=== PATIENT | female | born 1985 | race Caucasian/White ===

== ENCOUNTER 2017-06-12 09:40 | Emergency (ER) | payer OTHER ==
[~2017-06-12 09:40] MED LIST: PREN29TA PO; SERT-129 PO
--- NOTE | 2017-06-12 10:20 | PD ---
HPI Chief Complaint loss of fluids Date Seen: Jun 12, 2017 Time Seen: 10:20 Travel History International Travel<30 Days: No Contact w/Intl Traveler<30Days: No History of Present Illness HPI Mrs. Rodriguez is a 32-year-old at 35/3 weeks who presents for loss of fluids. Patient states she was walking along and here undergarments became soaked. States she had recently used the bathroom, but unsure if she completely emptied. Denies any vaginal bleeding, contractions. Endorses movement. She sees Dr. Zarate for care. No dysuria. No complications during this . She had been on sertraline during this but stopped taking it 2.5 weeks ago. Did have urinary incontinence during her last and went to due to bladder obstruction per pt. Weeks Gestation: 35 Para: 1 : 2 History Past Medical History Narrative Medical Anxiety Obstetric History Obstetric History at 39 weeks Past Surgical History Narrative Surgical Tympanostomy Family History Family History: Negative Social History Alcohol Use: No Tobacco Use: No Substance Abuse: No Allergies-Medications (Allergen,Severity, Reaction): Coded Allergies: No Known Allergies (Unverified , 11/13/16) Home Meds Reported Medications Vit-Iron Carbonyl ( Plus Iron 29-1 mg) 1 Tab Tab, 1 TAB PO DAILY for Nutritional Supplement, #30 TAB 0 Refills 11/13/16 Sertraline (Sertraline) 100 Mg Tab, 100 MG PO DAILY, #30 TAB 0 Refills 11/13/16 Review of Systems General / Constitutional: No: Fever, Weight Gain, Chills, Other Eyes: No: Diploplia, Blurred Vision, Visual changes, Pain, Photophobia HENT: No: Headaches, Vertigo, Lightheadedness Cardiovascular: No: Irregular Rhythm, Chest Pain or Discomfort, Palpitations, Tachycardia, Syncope, Varicosities, Edema, Cyanosis Respiratory: No: Cough, Short of Breath, Other Gastrointestinal: No: Nausea, Vomiting, Diarrhea Genitourinary: No: Decreased Urinary Output, Oliguria Musculoskeletal: No: Limited ROM, Weakness, Cramping, Edema, Pain Skin: No Rash, No Itching, No Dryness, No Lumps, No Change in Pigmentation, No Change in Nails, No Alopecia, No Lesions Neurologic: No: Weakness, Dizziness, Syncope, Focal Abnormalities, Coordination Problem, Headache, Slurred Speech, Seizures Psychiatric: No: Depression, Suicidal Ideations, Homicidal Ideation Endocrine: No: Heat Intolerance, Cold Intolerance, Polydipsia, Polyuria, Other Physical Exam Narrative GENERAL: Well-nourished, well-developed patient. SKIN: Warm and dry. HEAD: Normocephalic and atraumatic. EYES: No scleral icterus. No injection or drainage. ENT: No nasal drainage noted. Mucous membranes pink. Airway patent. NECK: Supple, trachea midline. No JVD. CARDIOVASCULAR: Regular rate and rhythm without murmurs, gallops, or rubs. RESPIRATORY: Breath sounds equal bilaterally. No accessory muscle use. ABDOMEN/GI: Abdomen soft, non-tender, bowel sounds present, no rebound, no guarding Gravid to 36 weeks size GENITOURINARY: Uterine Contractions: none FHT's: Category: 1 Baseline: 140 Reactive: yes Variability: moderate Decels: none EXTREMITIES: No cyanosis or edema. BACK: Nontender without obvious deformity. No CVA tenderness. NEUROLOGICAL: Awake and alert. Motor and sensory grossly within normal limits. Five out of 5 muscle strength in all muscle groups. Normal speech. Data Data Vital Signs Reviewed: Yes MDM Medical Record Reviewed: Yes Interpretation(s) 32 y/o at 35/3 weeks presents for loss of fluids. Amnisure negative Category 1 FHT, no contractions Loss of fluids likely due to bladder incontinence. Amnisure negative, no ROM -Discharge home in stable condition -Continue hydration, frequent urination to prevent incontinence -F/u with Dr. Singer Diagnosis Diagnosis: Primary Impression: Qualified Codes: Z3A.35 - 35 weeks gestation of Disposition: 01 DISCHARGE HOME Condition: Stable Patient Instructions: General Instructions, Early Labor Signs (ED), Premature Rupture of Membranes (ED) Abhinav Narayanan MD, R2 Jun 12, 2017 10:20
== END 2017-06-12 10:37 | disposition home or self-care (01) ==
LOC: HOBED 09:40
DX: O26.893 Other specified pregnancy related conditions, third trimester (principal); Z3A.35 35 weeks gestation of pregnancy
CPT/HCPCS: 84112; 99283

== ENCOUNTER 2017-07-08 05:31 | Inpatient (IN) | payer OTHER ==
[~2017-07-08] VITALS: Ht 152.4 cm; Wt 88.0 kg
[2017-07-08] VITALS (16 sets, daily range): BP systolic 95–122; BP diastolic 50–78; PULSE 84–125; RESP 18–20; TEMP 97.7–98.3; O2SAT 99–100
[2017-07-08] MEDS ORDERED: CITRIC ACID-SODIUM CITRATE LIQ 30 ML UDC PO SCH (05:45)
[2017-07-08] MEDS ORDERED: ceFAZolin 2 GM PREMIX 50 ML IV SCH (05:45)
[2017-07-08] MEDS: LACTATED RINGER'S 1000 ML IV SCH ×2 (05:45→06:00)
[2017-07-08] MEDS ORDERED: LACTATED RINGER'S 1000 ML IV ONE (05:45)
[2017-07-08] MEDS ORDERED: LIDOCAINE HCL 1% 50 ML VIAL ONE (05:57)
[2017-07-08 06:37] LABS: AUTOMATED NEUTROPHIL # 5.5 TH/MM3 (1.8-7.7); BASOPHIL % 0.4 % (0.0-2.0); EOSINOPHIL % 0.5 % (0.0-4.0); HEMATOCRIT 33.5 % (35.0-46.0); LYMPH % 17.7 % (9.0-44.0); LYMPHOCYTE # 1.3 TH/MM3 (1.0-4.8); MEAN CELL VOLUME 79.3 FL (80.0-100.0); MEAN CORPUSCULAR HGB CONC 32.8 % (32.0-36.0); MONO % 5.9 % (0.0-8.0); MONOCYTE # 0.4 TH/MM3 (0-0.9); NEUT % 75.5 % (16.0-70.0); PLATELET COUNT 254 TH/MM3 (150-450); RED BLOOD COUNT 4.23 MIL/MM3 (4.00-5.30); RED CELL DISTRIBUTION WIDTH 14.4 % (11.6-17.2); WHITE BLOOD COUNT 7.3 TH/MM3 (4.0-11.0)
[2017-07-08 07:09] LABS: BACTERIA, URINE RARE /hpf; BILIRUBIN, URINE NEG (NEG); BLOOD, URINE NEG (NEG); GLUCOSE,URINE NEG (NEG); KETONE, URINE NEG (NEG); MUCUS URINE FEW /lpf (OCC); NITRITE,URINE NEG (NEG); PH, URINE 6.5 (5.0-8.5); SQUAMOUS EPITHELIAL CELL URINE 12 /hpf (0-5); TRANSITIONAL EPI CELLS, URINE <1 /hpf; URINE COLOR YELLOW (YELLW/STRAW); URINE LEUKOCYTE ESTERASE MOD (NEG)
[2017-07-08] MEDS ORDERED: ACETAMINOPHEN 1000 MG/100 ML 100 ML IV ONE ×2 (07:11→09:00)
[2017-07-08] MEDS ORDERED: SODIUM CHLORIDE 0.9% FLUSH 10 ML FLUSH IV FLUSH PRN (08:15)
--- NOTE | 2017-07-08 08:15 | PD.OB.DELI ---
Procedure Note Section Procedure Performed by Chayo Zarate Procedure: Repeat Low Transverse Sec Indication for delivery: Desired elective repeat , Other (macrosomia) Previous condition: None Informed consent obtained: For anesthesia, For procedure Confirmed correct: Patient, Procedure, Site, Time-out taken Anesthesia: Spinal Medication prior to procedure: As documented in eMAR Monitoring during procedure: Blood pressure monitoring, air sampling and monitoring, doppler, Pulse oximetry Urinary catheter: Inserted using sterile technique, To dependent drainage, ml urine output Sterile preparation: Duraprep, In usual fashion, With 2% chlorexidine ( Hibiclens) Position: Supine with wedge to right side Operative Features Skin Incision: Pfannenstiel Uterine Incision: Low transverse w/knife / blunt ext Membranes Ruptured: Artificially Presentation: Occiput anterior Delivery date: Jul 08, 2017 Delivery time: 08:14 Delivery of : Assisted Infant: Male One Minute : 8 Five Minute : 9 Weight: 9 6 Status of : Viable, Cord blood Placenta delivered: Intact Medications: Antibiotics, Oxytocin Estimated blood loss: 500 Procedure tolerated: Well Maternal Condition: Stable Condition: Stable (dictated) Chayo Zarate MD Jul 08, 2017 08:15
--- NOTE | 2017-07-08 08:15 | PD.OB.DELI ---
Procedure Note Section Procedure Performed by Chayo Zarate Procedure: Repeat Low Transverse Sec Indication for delivery: Desired elective repeat , Other (macrosomia) Previous condition: None Informed consent obtained: For anesthesia, For procedure Confirmed correct: Patient, Procedure, Site, Time-out taken Anesthesia: Spinal Medication prior to procedure: As documented in eMAR Monitoring during procedure: Blood pressure monitoring, cardiac monitor technician, doppler, Pulse oximetry Urinary catheter: Inserted using sterile technique, To dependent drainage, ml urine output Sterile preparation: Duraprep, In usual fashion, With 2% chlorexidine ( Hibiclens) Position: Supine with wedge to right side Operative Features Skin Incision: Pfannenstiel Uterine Incision: Low transverse w/knife / blunt ext Membranes Ruptured: Artificially Presentation: Occiput anterior Delivery date: Jul 08, 2017 Delivery time: 08:14 Delivery of : Assisted Infant: Male One Minute : 8 Five Minute : 9 Weight: 9 6 Status of : Viable, Cord blood Placenta delivered: Intact Medications: Antibiotics, Oxytocin Estimated blood loss: 500 Procedure tolerated: Well Maternal Condition: Stable Condition: Stable (dictated) Chayo Zarate MD Jul 08, 2017 08:15
--- NOTE | 2017-07-08 08:15 | PD.OB.DELI ---
Procedure Note Section Procedure Performed by Chayo Zarate Procedure: Repeat Low Transverse Sec Indication for delivery: Desired elective repeat , Other (macrosomia) Previous condition: None Informed consent obtained: For anesthesia, For procedure Confirmed correct: Patient, Procedure, Site, Time-out taken Anesthesia: Spinal Medication prior to procedure: As documented in eMAR Monitoring during procedure: Blood pressure monitoring, property assessment monitor, doppler, Pulse oximetry Urinary catheter: Inserted using sterile technique, To dependent drainage, ml urine output Sterile preparation: Duraprep, In usual fashion, With 2% chlorexidine ( Hibiclens) Position: Supine with wedge to right side Operative Features Skin Incision: Pfannenstiel Uterine Incision: Low transverse w/knife / blunt ext Membranes Ruptured: Artificially Presentation: Occiput anterior Delivery date: Jul 08, 2017 Delivery time: 08:14 Delivery of : Assisted Infant: Male One Minute : 8 Five Minute : 9 Weight: 9 6 Status of : Viable, Cord blood Placenta delivered: Intact Medications: Antibiotics, Oxytocin Estimated blood loss: 500 Procedure tolerated: Well Maternal Condition: Stable Condition: Stable (dictated) Chayo Zarate MD Jul 08, 2017 08:15
--- NOTE | 2017-07-08 08:40 | PD.OP ---
Operative Report Date of Surgery: Jul 08, 2017 Preoperative Diagnosis: (1) 39 weeks gestation of (2) delivery due to previous difficult delivery, delivered, current hospitalization Postoperative Diagnosis: (1) delivery due to previous difficult delivery, delivered, current hospitalization (2) 39 weeks gestation of Procedure: Repeat Low Transverse Section Anesthesia: Spinal Surgeon: Chayo Zarate Inbound Customer Service Representative(s): Evette Carreon Resident Surgeon: Kathy Brothers Operation and Findings: PREOPERATIVE DIAGNOSIS 39-1/7 weeks gestation Repeat POSTOPERATIVE DIAGNOSIS 39-1/ weeks gestation Repeat PROCEDURE Repeat low transverse section ANESTHESIA Spinal SURGEON Chayo Zarate MD and Kathy Brothers, R3 FINDINGS A normal viable male weighing 4250g. 's 8/9. COMPLICATIONS None COUNTS Correct ESTIMATED BLOOD LOSS 600 cc FLUIDS Crystalloids CONDITION The patient tolerated the procedure well and went to the recovery room in good condition. PROCEDURE IN DETAIL The patient was taken to the operating room, identified by name band and verbally. The time out was done and patient was prepped and draped in the usual sterile fashion for section. A Pfannenstiel incision was made then carried down to the fascia. The fascia was taken off the rectus muscle by blunt and sharp dissection. The rectus muscles were spread bluntly and the peritoneum entered under direct vision without difficulty. The incision was extended and a bladder blade was placed. A bladder flap was created in the usual fashion and the uterus was incised transversely along the lower uterine segment and extended bluntly. The vertex was grasped and fundal pressure was applied. The uterine incision was extended with bandage scissors and the head was delivered with the assistance of a kiwi vacuum. The remainder of the infant was delivered without difficulty. Cord clamping was delayed for 45 seconds before the cord was doubly clamped and cut and the baby was handed to the baby nurse. The placenta was delivered manually. The uterus was curettaged with a wet lap. The uterine incision was repaired with #1 chromic in a running locking fashion in two layers with the second imbricating the first. Once this had been accomplished, all incisions were carefully inspected. Hemostasis was excellent. The gutters were irrigated and cleaned of blood and debris. The rectus muscles were reapproximated with 0 Vicryl in a running fashion and then the fascia was repaired with 0 Vicryl in a running fashion bilaterally. The incision was again irrigated prior to repairing the subcuticular layer with 3-0 plain and the skin with a 4-0 Monocryl in a subcuticular fashion. Steri-strips were applied and the wound was sterilely dressed. The patient tolerated the procedure well and went to the recovery room in good condition. Kathy Brothers MD, R3 Jul 08, 2017 08:40
[2017-07-08] MEDS ORDERED: BUPIVACAINE HCL PF 0.5% 30 ML VIAL ONE (08:55)
[2017-07-08] MEDS ORDERED: SODIUM CHLORIDE 0.9% 20 ML VIAL ONE (08:55)
[2017-07-08] MEDS ORDERED: DEXAMETHASONE SOD PHOS 4 MG/ML VIAL ONE (08:55)
[2017-07-08] MEDS ORDERED: ONDANSETRON HCL 4 MG/2 ML VIAL IV PUSH PRN (09:00)
[2017-07-08] MEDS ORDERED: ZOLPIDEM TARTRATE 5 MG TAB PO PRN (09:00)
[2017-07-08] MEDS ORDERED: OXYTOCIN 30 UNITS-500ML PREMIX 500 ML IV ONE (09:00)
[2017-07-08] MEDS: SODIUM CHLORIDE 0.9% FLUSH 10 ML FLUSH IV FLUSH SCH (09:00)
[2017-07-08] MEDS ORDERED: SIMETHICONE 80 MG CHEWABLE TAB PO PRN (09:00)
[2017-07-08] MEDS ORDERED: EPIDURAL-DIPHENHYDRAMINE HCL 50 MG CAP PO PRN (12:00)
[2017-07-08] MEDS ORDERED: EPIDURAL-NO SYSTEMIC NARCOTICS PRN (12:00)
[2017-07-08] MEDS ORDERED: EPIDURAL-NALOXONE HCL 0.4 MG/ML AMP IV PUSH PRN (12:00)
[2017-07-08] MEDS ORDERED: EPIDURAL-DIPHENHYDRAMINE HCL 50 MG/ML VIAL IV PUSH PRN (12:00)
[2017-07-08] MEDS ORDERED: EPIDURAL-DO NOT ADMINISTER ANTICOAGULANTS PRN (12:00)
[2017-07-08] MEDS ORDERED: LACTATED RINGER'S 1000 ML INJ 1,000 ML IV SCH (13:00)
[2017-07-08] MEDS: IBUPROFEN 600 MG TAB PO PRN (17:32)
[2017-07-08] MEDS: oxyCODONE/ACETAMINOPHEN 5 MG/325 MG TAB PO PRN ×2 (17:32→21:39)
[2017-07-08] MEDS ORDERED: OXYTOCIN 30 UNITS-500ML PREMIX 500 ML IV PRN (18:15)
[2017-07-08] MEDS: DOCUSATE SODIUM 50 MG/SENNA 8.6 MG TAB PO PRN (21:39)
[2017-07-09] MEDS: oxyCODONE/ACETAMINOPHEN 5 MG/325 MG TAB PO PRN ×5 (01:41→21:59)
[2017-07-09] MEDS: IBUPROFEN 600 MG TAB PO PRN ×3 (01:42→20:04)
[2017-07-09 05:56] LABS: AUTOMATED NEUTROPHIL # 7.2 TH/MM3 (1.8-7.7); BASOPHIL % 0.2 % (0.0-2.0); EOSINOPHIL % 0.2 % (0.0-4.0); HEMATOCRIT 23.7 % (35.0-46.0); HEMOGLOBIN 7.9 GM/DL (11.6-15.3); LYMPH % 18.7 % (9.0-44.0); LYMPHOCYTE # 1.8 TH/MM3 (1.0-4.8); MEAN CELL VOLUME 79.8 FL (80.0-100.0); MEAN CORPUSCULAR HEMOGLOBIN 26.5 PG (27.0-34.0); MEAN CORPUSCULAR HGB CONC 33.3 % (32.0-36.0); MEAN PLATELET VOLUME 7.3 FL (7.0-11.0); MONO % 7.3 % (0.0-8.0); MONOCYTE # 0.7 TH/MM3 (0-0.9); NEUT % 73.6 % (16.0-70.0); PLATELET COUNT 227 TH/MM3 (150-450); RED BLOOD COUNT 2.97 MIL/MM3 (4.00-5.30); RED CELL DISTRIBUTION WIDTH 14.1 % (11.6-17.2); WHITE BLOOD COUNT 9.8 TH/MM3 (4.0-11.0)
[2017-07-09 07:40] VITALS: BP 110/57; PULSE 93; RESP 16; TEMP 98.3
--- NOTE | 2017-07-09 08:51 | HHI.OB ---
Subjective Post Operative Day: 1 Remarks POD#1; c/o progressive anxiety. has prior history of anxiety Objective Vitals/I&O Vital Signs Date Time Temp Pulse Resp B/P (MAP) Pulse Ox O2 Delivery O2 Flow Rate FiO2 07/09/17 07:40 98.3 93 16 110/57 (74) 07/08/17 20:20 98.3 89 20 102/65 (77) 07/08/17 15:29 98.0 90 18 98/55 (69) 07/08/17 10:35 98.0 86 18 103/69 (80) 07/08/17 10:00 100 07/08/17 10:00 88 18 99/55 (70) 07/08/17 09:52 97.9 07/08/17 09:48 100 07/08/17 09:44 89 18 98/53 (68) 07/08/17 09:33 90 07/08/17 09:33 18 100 07/08/17 09:33 95/50 (65) 07/08/17 09:25 100 07/08/17 09:14 84 18 07/08/17 09:11 122/58 (79) 07/08/17 09:10 99 07/08/17 08:55 107 18 07/08/17 08:55 102/59 (73) Result Diagram: 07/09/17 0537 Objective Remarks GENERAL: Well-nourished, well-developed patient. CARDIOVASCULAR: Regular rate and rhythm without murmurs, gallops, or rubs. RESPIRATORY: Breath sounds equal bilaterally. No accessory muscle use. ABDOMEN/GI: Abdomen soft, non-tender, bowel sounds present. Incision: Clean, dry and intact. Fundus: Firm, non-tender at umbilicus. GENITOURINARY: Light to moderate bleeding. EXTREMITIES: No cyanosis or edema, non-tender, without signs of DVT. Medications and IVs Current Medications Medications (Trade) Dose Ordered Sig/Ela Route Start Time Stop Time Status Last Admin (Bicitra Liq) [address] AND BUILDING DECORATOR PO 07/08/17 05:45 07/11/17 05:44 07/08/17 07:22 Cefazolin Sodium/ Dextrose 50 ml @ 100 mls/hr STREET AND BUILDING DECORATOR IV 07/08/17 05:45 07/11/17 05:44 07/08/17 07:22 Lactated Ringer's 1,000 ml @ 100 mls/hr Q10H IV 07/08/17 13:00 07/09/17 08:59 Oxytocin 500 ml @ 100 mls/hr UNSCH X1 PRN IV 07/08/17 18:15 07/09/17 18:14 (NS Flush) 2 ml BID IV FLUSH 07/08/17 09:00 (NS Flush) 2 ml UNSCH PRN IV FLUSH 07/08/17 08:15 (Mylicon Chew) 80 mg QID PRN PO 07/08/17 09:00 (Motrin) 600 mg Q6H PRN PO 07/08/17 09:00 07/09/17 07:42 (Percocet 5-325 Mg) 1 tab Q4H PRN PO 07/08/17 09:00 07/09/17 05:52 (Percocet 5-325 Mg) 2 tab Q4H PRN PO 07/08/17 09:00 (Gisselle-Colace) 2 tab Q12H PRN PO 07/08/17 09:00 07/08/17 21:39 (Ambien) 5 mg HS PRN PO 07/08/17 09:00 (M-M-R Ii Inj) 0.5 ml ONCE ONCE SQ 07/09/17 16:00 07/09/17 16:01 (Boostrix Inj) 0.5 ml ONCE ONCE IM 07/09/17 16:00 07/09/17 16:01 (Zofran Inj) 4 mg Q6H PRN IV PUSH 07/08/17 09:00 Miscellaneous Information NO SYSTEMIC NARCOTICS TO BE GIVEN FO... UNSCH PRN .XX 07/08/17 12:00 07/09/17 11:59 (Narcan Inj) 0.4 mg UNSCH PRN IV PUSH 07/08/17 12:00 07/09/17 11:59 (Benadryl Inj) 25 mg Q6H PRN IV PUSH 07/08/17 12:00 07/09/17 11:59 (Benadryl) 50 mg Q6H PRN PO 07/08/17 12:00 07/09/17 11:59 07/08/17 12:26 Miscellaneous Information ALL NURSING DEPARTMENTS UNSCH PRN .XX 07/08/17 12:00 07/09/17 11:59 Assessment/Plan Assessment and Plan POD#1, repeat cd, Start zoloft for anxiety. Advance care as tolerated Discharge Planning Does not meet criteria Attending Attestation seen by River Castro MD Jul 09, 2017 08:51
[2017-07-09] MEDS: SERTRALINE HCL 100 MG TAB PO SCH (10:16)
[2017-07-09] MEDS ORDERED: DIPHTH/TETANUS/ACEL PERTUSSIS (BOOSTER) 0.5 ML VIAL/PFS IM ONE (16:00)
[2017-07-09] MEDS ORDERED: MEASLES, MUMPS, RUBELLA VACCINE 0.5 ML VIAL SQ ONE (16:00)
[2017-07-09 19:30] VITALS: BP 95/61; PULSE 72; RESP 18; TEMP 98.1
[2017-07-09] MEDS: DOCUSATE SODIUM 50 MG/SENNA 8.6 MG TAB PO PRN (20:04)
[2017-07-09] MEDS: SODIUM CHLORIDE 0.9% FLUSH 10 ML FLUSH IV FLUSH SCH (21:00)
[2017-07-10] MEDS: oxyCODONE/ACETAMINOPHEN 5 MG/325 MG TAB PO PRN ×5 (02:08→19:58)
[2017-07-10] MEDS: IBUPROFEN 600 MG TAB PO PRN ×3 (02:08→15:50)
[2017-07-10 08:00] VITALS: BP 109/70; PULSE 97; RESP 18; TEMP 98.1
--- NOTE | 2017-07-10 08:26 | HHI.OB ---
Subjective Post Operative Day: 2 Remarks better with respect to anxiety but still reports painful and can't imagine going home yet has started her zoloft counseled in detail on circumcision and PPD Objective Vitals/I&O Vital Signs Date Time Temp Pulse Resp B/P (MAP) Pulse Ox O2 Delivery O2 Flow Rate FiO2 07/10/17 08:00 109/70 (83) 07/10/17 08:00 98.1 97 18 07/09/17 19:30 72 18 95/61 (72) 07/09/17 19:30 98.1 Result Diagram: 07/09/17 0537 Objective Remarks GENERAL: Well-nourished, well-developed patient. CARDIOVASCULAR: Regular rate and rhythm without murmurs, gallops, or rubs. RESPIRATORY: Breath sounds equal bilaterally. No accessory muscle use. ABDOMEN/GI: Abdomen soft, non-tender, bowel sounds present. Incision: Clean, dry and intact. Fundus: Firm, non-tender at umbilicus. GENITOURINARY: Light to moderate bleeding. EXTREMITIES: No cyanosis or edema, non-tender, without signs of DVT. Medications and IVs Current Medications Medications (Trade) Dose Ordered Sig/Ela Route Start Time Stop Time Status Last Admin (Bicitra Liq) 30 ml CHILD LIFE THERAPIST PO 07/08/17 05:45 07/11/17 05:44 07/08/17 07:22 Cefazolin Sodium/ Dextrose 50 ml @ 100 mls/hr CHILD LIFE THERAPIST IV 07/08/17 05:45 07/11/17 05:44 07/08/17 07:22 (NS Flush) 2 ml BID IV FLUSH 07/08/17 09:00 (NS Flush) 2 ml UNSCH PRN IV FLUSH 07/08/17 08:15 (Mylicon Chew) 80 mg QID PRN PO 07/08/17 09:00 (Motrin) 600 mg Q6H PRN PO 07/08/17 09:00 07/10/17 02:08 (Percocet 5-325 Mg) 1 tab Q4H PRN PO 07/08/17 09:00 07/10/17 07:06 (Percocet 5-325 Mg) 2 tab Q4H PRN PO 07/08/17 09:00 07/09/17 14:20 (Gisselle-Colace) 2 tab Q12H PRN PO 07/08/17 09:00 07/09/17 20:04 (Ambien) 5 mg HS PRN PO 07/08/17 09:00 (Zofran Inj) 4 mg Q6H PRN IV PUSH 07/08/17 09:00 (Zoloft) 100 mg DAILY PO 07/09/17 09:45 07/09/17 10:16 Assessment/Plan Assessment and Plan POD#1, repeat cd, Start zoloft for anxiety. Advance care as tolerated POD #2 Hgb down more than would have anticipated. Will give venofir and repeat CBC in am POD 3 Discharge Planning Does not meet criteria Chayo Zarate MD Jul 10, 2017 08:25
--- NOTE | 2017-07-10 08:26 | HHI.OB ---
Subjective Post Operative Day: 2 Remarks better with respect to anxiety but still reports painful and can't imagine going home yet has started her zoloft counseled in detail on circumcision and PPD Objective Vitals/I&O Vital Signs Date Time Temp Pulse Resp B/P (MAP) Pulse Ox O2 Delivery O2 Flow Rate FiO2 07/10/17 08:00 109/70 (83) 07/10/17 08:00 98.1 97 18 07/09/17 19:30 72 18 95/61 (72) 07/09/17 19:30 98.1 Result Diagram: 07/09/17 0537 Objective Remarks GENERAL: Well-nourished, well-developed patient. CARDIOVASCULAR: Regular rate and rhythm without murmurs, gallops, or rubs. RESPIRATORY: Breath sounds equal bilaterally. No accessory muscle use. ABDOMEN/GI: Abdomen soft, non-tender, bowel sounds present. Incision: Clean, dry and intact. Fundus: Firm, non-tender at umbilicus. GENITOURINARY: Light to moderate bleeding. EXTREMITIES: No cyanosis or edema, non-tender, without signs of DVT. Medications and IVs Current Medications Medications (Trade) Dose Ordered Sig/Ela Route Start Time Stop Time Status Last Admin (Bicitra Liq) 30 ml CRANE ASSEMBLER PO 07/08/17 05:45 07/11/17 05:44 07/08/17 07:22 Cefazolin Sodium/ Dextrose 50 ml @ 100 mls/hr CRANE ASSEMBLER IV 07/08/17 05:45 07/11/17 05:44 07/08/17 07:22 (NS Flush) 2 ml BID IV FLUSH 07/08/17 09:00 (NS Flush) 2 ml UNSCH PRN IV FLUSH 07/08/17 08:15 (Mylicon Chew) 80 mg QID PRN PO 07/08/17 09:00 (Motrin) 600 mg Q6H PRN PO 07/08/17 09:00 07/10/17 02:08 (Percocet 5-325 Mg) 1 tab Q4H PRN PO 07/08/17 09:00 07/10/17 07:06 (Percocet 5-325 Mg) 2 tab Q4H PRN PO 07/08/17 09:00 07/09/17 14:20 (Gisselle-Colace) 2 tab Q12H PRN PO 07/08/17 09:00 07/09/17 20:04 (Ambien) 5 mg HS PRN PO 07/08/17 09:00 (Zofran Inj) 4 mg Q6H PRN IV PUSH 07/08/17 09:00 (Zoloft) 100 mg DAILY PO 07/09/17 09:45 07/09/17 10:16 Assessment/Plan Assessment and Plan POD#1, repeat cd, Start zoloft for anxiety. Advance care as tolerated POD #2 Hgb down more than would have anticipated. Will give venofir and repeat CBC in am POD 3 Discharge Planning Does not meet criteria Chayo Zarate MD Jul 10, 2017 08:25
--- NOTE | 2017-07-10 08:26 | HHI.OB ---
Subjective Post Operative Day: 2 Remarks better with respect to anxiety but still reports painful and can't imagine going home yet has started her zoloft counseled in detail on circumcision and PPD Objective Vitals/I&O Vital Signs Date Time Temp Pulse Resp B/P (MAP) Pulse Ox O2 Delivery O2 Flow Rate FiO2 07/10/17 08:00 109/70 (83) 07/10/17 08:00 98.1 97 18 07/09/17 19:30 72 18 95/61 (72) 07/09/17 19:30 98.1 Result Diagram: 07/09/17 0537 Objective Remarks GENERAL: Well-nourished, well-developed patient. CARDIOVASCULAR: Regular rate and rhythm without murmurs, gallops, or rubs. RESPIRATORY: Breath sounds equal bilaterally. No accessory muscle use. ABDOMEN/GI: Abdomen soft, non-tender, bowel sounds present. Incision: Clean, dry and intact. Fundus: Firm, non-tender at umbilicus. GENITOURINARY: Light to moderate bleeding. EXTREMITIES: No cyanosis or edema, non-tender, without signs of DVT. Medications and IVs Current Medications Medications (Trade) Dose Ordered Sig/Ela Route Start Time Stop Time Status Last Admin (Bicitra Liq) 30 ml TRIMMING MACHINE OPERATOR PO 07/08/17 05:45 07/11/17 05:44 07/08/17 07:22 Cefazolin Sodium/ Dextrose 50 ml @ 100 mls/hr TRIMMING MACHINE OPERATOR IV 07/08/17 05:45 07/11/17 05:44 07/08/17 07:22 (NS Flush) 2 ml BID IV FLUSH 07/08/17 09:00 (NS Flush) 2 ml UNSCH PRN IV FLUSH 07/08/17 08:15 (Mylicon Chew) 80 mg QID PRN PO 07/08/17 09:00 (Motrin) 600 mg Q6H PRN PO 07/08/17 09:00 07/10/17 02:08 (Percocet 5-325 Mg) 1 tab Q4H PRN PO 07/08/17 09:00 07/10/17 07:06 (Percocet 5-325 Mg) 2 tab Q4H PRN PO 07/08/17 09:00 07/09/17 14:20 (Gisselle-Colace) 2 tab Q12H PRN PO 07/08/17 09:00 07/09/17 20:04 (Ambien) 5 mg HS PRN PO 07/08/17 09:00 (Zofran Inj) 4 mg Q6H PRN IV PUSH 07/08/17 09:00 (Zoloft) 100 mg DAILY PO 07/09/17 09:45 07/09/17 10:16 Assessment/Plan Assessment and Plan POD#1, repeat cd, Start zoloft for anxiety. Advance care as tolerated POD #2 Hgb down more than would have anticipated. Will give venofir and repeat CBC in am POD 3 Discharge Planning Does not meet criteria Chayo Zarate MD Jul 10, 2017 08:25
[2017-07-10] MEDS ORDERED: IRON SUCROSE 100 MG/5 ML VIAL IV PUSH ONE (08:30)
[2017-07-10] MEDS: SODIUM CHLORIDE 0.9% FLUSH 10 ML FLUSH IV FLUSH SCH (09:00)
[2017-07-10] MEDS: SERTRALINE HCL 100 MG TAB PO SCH (09:21)
[2017-07-10] MEDS ORDERED: IRON SUCROSE INJ 200 MG in SODIUM CHLORIDE 0.9% INJ 100 ML IV ONE (10:00)
[2017-07-10] MEDS: FERROUS SULFATE 325 MG (65 MG ELEMENTAL IRON) TAB PO SCH (11:53)
[2017-07-10] MEDS: DOCUSATE SODIUM 50 MG/SENNA 8.6 MG TAB PO PRN (15:59)
[2017-07-10 20:00] VITALS: BP 100/62; PULSE 82; RESP 18; TEMP 97.7
[2017-07-11] MEDS: oxyCODONE/ACETAMINOPHEN 5 MG/325 MG TAB PO PRN ×3 (01:13→13:04)
[2017-07-11] MEDS: IBUPROFEN 600 MG TAB PO PRN ×2 (01:13→08:31)
[2017-07-11 06:14] LABS: BASOPHIL % 0.5 % (0.0-2.0); EOSINOPHIL # 0.1 TH/MM3 (0-0.4); EOSINOPHIL % 1.7 % (0.0-4.0); HEMATOCRIT 23.6 % (35.0-46.0); HEMOGLOBIN 7.8 GM/DL (11.6-15.3); LYMPH % 19.9 % (9.0-44.0); LYMPHOCYTE # 1.4 TH/MM3 (1.0-4.8); MEAN CELL VOLUME 80.5 FL (80.0-100.0); MEAN CORPUSCULAR HEMOGLOBIN 26.5 PG (27.0-34.0); MEAN CORPUSCULAR HGB CONC 32.9 % (32.0-36.0); MEAN PLATELET VOLUME 6.7 FL (7.0-11.0); MONO % 5.8 % (0.0-8.0); MONOCYTE # 0.4 TH/MM3 (0-0.9); NEUT % 72.1 % (16.0-70.0); PLATELET COUNT 256 TH/MM3 (150-450); RED BLOOD COUNT 2.94 MIL/MM3 (4.00-5.30); RED CELL DISTRIBUTION WIDTH 14.3 % (11.6-17.2); WHITE BLOOD COUNT 6.9 TH/MM3 (4.0-11.0)
[2017-07-11] MEDS ORDERED: IBUP-232 PO (08:23)
[2017-07-11] MEDS ORDERED: SENN1TAB PO (08:23)
[2017-07-11] MEDS ORDERED: SERT-129 PO (08:23)
[2017-07-11] MEDS ORDERED: OXYC1TAB63 PO (08:23)
[2017-07-11] MEDS ORDERED: FERR325T20 PO (08:23)
--- NOTE | 2017-07-11 08:24 | HHI.DCPOC ---
Discharge Care Plan Diagnosis: (1) delivery due to previous difficult delivery, delivered, current hospitalization Your Health Problems Are: Incisions/drains delivery Report Symptoms to Your Doctor -Temperature above 100.5 degrees -Redness, of incision or excessive or foul smelling drainage -Unusual pain or calf pain -Increased vaginal bleeding -Painful or difficulty urinating -Feelings of extreme sadness or anxiety after 2 weeks Goals to Promote Your Health * To prevent worsening of your condition and complications * To maintain your health at the optimal level Directions to Meet Your Goals Take your medications as prescribed Follow your dietary instruction Follow activity as directed Ensure plenty of rest for recovery Drink fluids for hydration Keep your appointments as scheduled Take your immunizations and boosters as scheduled If your symptoms worsen call your PCP, if no PCP go to Urgent Care Center or Emergency Room Smoking is Dangerous to Your Health. Avoid second hand smoke Call the 24-hour crisis hotline for domestic abuse at Arabella Harris MD Jul 11, 2017 08:24
[2017-07-11] MEDS: SERTRALINE HCL 100 MG TAB PO SCH (08:31)
[2017-07-11] MEDS: FERROUS SULFATE 325 MG (65 MG ELEMENTAL IRON) TAB PO SCH (08:31)
[2017-07-11] MEDS: DOCUSATE SODIUM 50 MG/SENNA 8.6 MG TAB PO PRN (08:36)
[2017-07-11 08:40] VITALS: BP 108/69; PULSE 100; RESP 18; TEMP 97.8
[2017-07-11] MEDS ORDERED: ZOLO100T PO (09:50)
--- NOTE | 2017-07-11 09:53 | HHI.OB ---
Subjective Post Operative Day: 3 Remarks doing well, voiding, had bm, polo po. pain well controlled Objective Vitals/I&O Vital Signs Date Time Temp Pulse Resp B/P (MAP) Pulse Ox O2 Delivery O2 Flow Rate FiO2 07/10/17 20:00 100/62 (75) 07/10/17 20:00 97.7 82 18 Result Diagram: 07/11/17 0542 Objective Remarks GENERAL: Well-nourished, well-developed patient. CARDIOVASCULAR: Regular rate and rhythm without murmurs, gallops, or rubs. RESPIRATORY: Breath sounds equal bilaterally. No accessory muscle use. ABDOMEN/GI: Abdomen soft, non-tender, bowel sounds present. Incision: Clean, dry and intact.steris in place. hematoma to mons Fundus: Firm, non-tender at umbilicus. GENITOURINARY: Light to moderate bleeding. EXTREMITIES: No cyanosis or edema, non-tender, without signs of DVT. Medications and IVs Current Medications Medications (Trade) Dose Ordered Sig/Ela Route Start Time Stop Time Status Last Admin (NS Flush) 2 ml BID IV FLUSH 07/08/17 09:00 (NS Flush) 2 ml UNSCH PRN IV FLUSH 07/08/17 08:15 (Mylicon Chew) 80 mg QID PRN PO 07/08/17 09:00 (Motrin) 600 mg Q6H PRN PO 07/08/17 09:00 07/11/17 08:31 (Percocet 5-325 Mg) 1 tab Q4H PRN PO 07/08/17 09:00 07/11/17 08:31 (Percocet 5-325 Mg) 2 tab Q4H PRN PO 07/08/17 09:00 07/09/17 14:20 (Gisselle-Colace) 2 tab Q12H PRN PO 07/08/17 09:00 07/11/17 08:36 (Ambien) 5 mg HS PRN PO 07/08/17 09:00 (Zofran Inj) 4 mg Q6H PRN IV PUSH 07/08/17 09:00 (Zoloft) 100 mg DAILY PO 07/09/17 09:45 07/11/17 08:31 (Ferrous Sulfate) 325 mg DAILY PO 07/10/17 12:00 11/3/17 08:31 Assessment/Plan Assessment and Plan POD 3 rcd- doing well, desires discharge, no symptoms of anemia. Hgb stable compared to yestercday. Will start iron bid and stool softner Discharge Planning Does not meet criteria Arabella Harris MD Jul 11, 2017 09:53
[2017-07-11] MEDS ORDERED: MEASLES, MUMPS, RUBELLA VACCINE 0.5 ML VIAL SQ ONE (12:30)
== END 2017-07-11 13:22 | disposition home or self-care (01) | DRG 766 ==
LOC: H2EB 05:31 → H1EA 10:35
PROVIDERS: ADMIT Obstetrics & Gynecology; ATTEND Obstetrics & Gynecology
PROC: 10D00Z1 Extraction of Products of Conception, Low, Open Approach (ICD-10-PCS; principal; 2017-07-08)
DX: O34.211 Maternal care for low transverse scar from previous cesarean delivery (principal); F41.9 Anxiety disorder, unspecified; O99.344 Other mental disorders complicating childbirth; O36.63X0 Maternal care for excessive fetal growth, third trimester, not applicable or unspecified; Z37.0 Single live birth; Z3A.39 39 weeks gestation of pregnancy
CPT/HCPCS: 59025; 80307; 81001; 85025; 85461; 86850; 86900; 86901; 90384; 90707; J0131; J0690; J1100; J2590; J2790; J7120; Q0163

== ENCOUNTER 2017-07-18 11:17 | Emergency (ER) | payer OTHER ==
[~2017-07-18] VITALS: Ht 152.4 cm; Wt 75.0 kg
[~2017-07-18 11:17] MED LIST changes: +FERR325T20 PO; +IBUP-232 PO; +OXYC1TAB63 PO; +SENN1TAB PO; +ZOLO100T PO
[2017-07-18 11:20] VITALS: BP 126/74; PULSE 88; RESP 12; TEMP 98.5; O2SAT 100
[2017-07-18] MEDS ORDERED: ONDANSETRON HCL 4 MG/2 ML VIAL IVP ONE (11:45)
[2017-07-18] MEDS ORDERED: SODIUM CHLORIDE 0.9% FLUSH 10 ML FLUSH IV FLUSH PRN (11:45)
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
[2017-07-18 12:05] LABS: AUTOMATED NEUTROPHIL # 5.8 TH/MM3 (1.8-7.7); BASOPHIL # 0.1 TH/MM3 (0-0.2); BASOPHIL % 0.7 % (0.0-2.0); EOSINOPHIL % 0.5 % (0.0-4.0); HEMATOCRIT 33.7 % (35.0-46.0); HEMO FLAGS DIFF FINAL; LYMPH % 19.9 % (9.0-44.0); LYMPHOCYTE # 1.6 TH/MM3 (1.0-4.8); MEAN CELL VOLUME 81.3 FL (80.0-100.0); MEAN CORPUSCULAR HEMOGLOBIN 26.4 PG (27.0-34.0); MEAN CORPUSCULAR HGB CONC 32.5 % (32.0-36.0); MONO % 5.9 % (0.0-8.0); PLATELET COUNT 501 TH/MM3 (150-450); RED BLOOD COUNT 4.14 MIL/MM3 (4.00-5.30); RED CELL DISTRIBUTION WIDTH 15.7 % (11.6-17.2)
[2017-07-18 12:17] LABS: INTERNATIONAL NORMALIZED RATIO 0.9 RATIO; PROTHROMBIN TIME - PATIENT 10.4 SEC (9.8-11.6)
[2017-07-18 12:18] LABS: APTT (PATIENT) 27.3 SEC (24.3-30.1)
[2017-07-18 12:27] VITALS: BP 121/72; PULSE 81; RESP 15; O2SAT 98
[2017-07-18 12:28] LABS: ALKALINE PHOSPHATASE 158 U/L (45-117); TOTAL BILIRUBIN ADULT 0.4 MG/DL (0.2-1.0)
[2017-07-18 12:44] LABS: BACTERIA, URINE RARE /hpf; BLOOD, URINE LARGE (NEG); COMMENT (UR) CULTURE INDICATED; CULTURE IF INDICATED CULTURE INDICATED; GLUCOSE,URINE NEG (NEG); KETONE, URINE 10 mg/dL (NEG); MUCUS URINE FEW /lpf (OCC); NITRITE,URINE NEG (NEG); PH, URINE 5.5 (5.0-8.5); SQUAMOUS EPITHELIAL CELL URINE 4 /hpf (0-5); URINE COLOR YELLOW (YELLW/STRAW)
[2017-07-18] MEDS ORDERED: ZOFR4TAB3 SL (13:04)
[2017-07-18 13:17] LABS: ANION GAP 10 MEQ/L (5-15); AST (GOT) 16 U/L (15-37); BICARBONATE 21.6 MEQ/L (21.0-32.0); BLOOD UREA NITROGEN 9 MG/DL (7-18); CHLORIDE 108 MEQ/L (98-107); GLOMERULAR FILTRATION RATE 94 ML/MIN (>89); POTASSIUM 3.5 MEQ/L (3.5-5.1); SODIUM (NA) 140 MEQ/L (136-145)
[2017-07-18 13:19] LABS: ALT (GPT) 22 U/L (10-53)
[2017-07-18] MEDS ORDERED: CEPH-460 PO (13:26)
[2017-07-18 13:46] VITALS: BP 121/75
== END 2017-07-18 13:47 | disposition home or self-care (01) ==
LOC: NEPD 11:17
DX: O99.63 Diseases of the digestive system complicating the puerperium (principal); K52.9 Noninfective gastroenteritis and colitis, unspecified; O90.81 Anemia of the puerperium; F53 Mental and behavioral disorders associated with the puerperium, not elsewhere classified; K59.00 Constipation, unspecified; J45.909 Unspecified asthma, uncomplicated; B96.89 Other specified bacterial agents as the cause of diseases classified elsewhere; Z79.899 Other long term (current) drug therapy
CPT/HCPCS: 80053; 81001; 83690; 85025; 85610; 85730; 87086; 96374; 99284; J2405